=== PATIENT | female | born 1965 | race Caucasian/White ===

== ENCOUNTER → 2018-05-25 18:24 | Outpatient (REF) | payer OTHER, MEDICAID, SELFPAY ==
[2018-05-25 18:38] LABS: Add Manual Diff / Slide Review NO; Basophils Absolute Auto 100 /uL (0-100); Basophils Percent Auto 1.7 % (0-2); Eosinophils Absolute Auto 0 /uL (0-450); Eosinophils Percent Auto 0.9 % (2-4); Hematocrit 43.3 % (36-46); Hemoglobin 14.2 g/dL (12.0-16.0); Lymphocytes Absolute Auto 2000 /uL (1100-4500); Mean Corpuscular HGB Conc 32.7 % (30-36); Mean Corpuscular Hemoglobin 31.8 PG (26-34); Mean Corpuscular Volume 97.3 fL (80-100); Monocytes Absolute Auto 500 /uL (0-900); Monocytes Percent Auto 12.7 % (3-14); Neutrophils Absolute Auto 1400 /uL (1500-7000); Neutrophils Percent Auto 34.7 % (50-75); Platelet Count 169 X10^3/uL (150-400); Red Blood Cell Count 4.45 X10^6/uL (4.0-5.2); Red Cell Distribution Width 18.2 % (11.6-14.8); White Blood Cell Count 4.1 X10^3/uL (4.5-11.0)
[2018-05-25 19:11] LABS: Alanine Aminotransferase 80 IU/L (9-52); Albumin 4.4 g/dL (3.5-5.0); Albumin Globulin Ratio 1.6 (1.0-2.8); Alkaline Phosphatase 82 U/L (38-126); Aspartate Aminotransferase 53 IU/L (14-36); Bilirubin Total 0.7 mg/dL (0.2-1.3); Blood Urea Nitrogen 26 mg/dL (7-17); Calcium 9.2 mg/dL (8.4-10.2); Carbon Dioxide 27 mmol/L (22-32); Chloride 100 mmol/L (98-107); Cholesterol 233 mg/dL (140-199); Estimated Glomerular Filt Rate 58.5 mL/min (>60); Globulin 2.8 g/dL (1.7-4.1); Glucose 91 mg/dL (70-100); HEMOLYSIS < 15 (0-50); Potassium 3.8 mmol/L (3.4-5.1); Sodium 139 mmol/L (137-145); Total Protein 7.2 g/dL (6.3-8.2); Triglycerides 130 mg/dL (35-150)
[2018-05-25 19:20] LABS: HDL Cholesterol 108 mg/dL (40-60); LDL Cholesterol Calculated 99 mg/dL (<100)
[2018-05-29 08:39] LABS: Hepatitis A Antibody IgM NONREACTIVE (NONREACTIVE); Hepatitis Acute Panel Interp 0.02; Hepatitis B Core Antibody IgM NONREACTIVE (NONREACTIVE); Hepatitis B Surface Antigen NONREACTIVE (NONREACTIVE); Hepatitis C Antibody NONREACTIVE
== END ==
LOC: LAB 18:24
PROVIDERS: Visit Provider Family Medicine Geriatric Medicine
DX: I10 Essential (primary) hypertension (principal); Z13.220 Encounter for screening for lipoid disorders; Z00.00 Encounter for general adult medical examination without abnormal findings
CPT/HCPCS: 36415; 80053; 80061; 80074; 85025

== ENCOUNTER 2019-02-25 13:28 | Emergency (ER) | payer OTHER, MEDICAID, SELFPAY ==
[2019-02-25 13:44] VITALS: BP 147/113; PULSE 82; RESP 15; TEMP 36.7; O2SAT 97; BMI 30.9
--- NOTE | 2019-02-25 13:55 | DI.US.S_ITS ---
PROCEDURE: US ABDOMEN LIMITED INDICATIONS: EPIGASTRIC PAIN; ELEVATED BILIRUBIN, LFTS TECHNIQUE: Real-time focused scanning was performed of the abdomen, with image documentation. COMPARISON: None. FINDINGS: This study is limited by body habitus. The liver demonstrates normal size. The liver demonstrates generalized increased echogenicity. This decreases ultrasound sensitivity for detection of hepatic masses. No findings of gallstones or sludge are seen. The gallbladder wall is not thickened, measuring 3 mm or less. No specific pericholecystic fluid is seen. The sonographic Bosch sign is negative. There is no biliary dilatation, the common bile duct measures 4 mm. No significant pancreatic abnormality is seen on these images. IMPRESSION: The gallbladder demonstrates a normal sonographic appearance. No biliary dilatation is seen. Fatty liver infiltration. Dictated by: Fransisco Cartagena M.D. on 02/25/2019 at 13:55 Approved by: Fransisco Cartagena M.D. on 02/25/2019 at 13:57
--- NOTE | 2019-02-25 13:59 | ED_ITS ---
HPI - Nausea/Vomiting/Diarrhea <LILIBETH Moore - Last Filed: 02/25/19 15:27> General Chief complaint: Nausea/Vomiting/Diarrhea Stated complaint: check gall bladder Time Seen by Provider: 02/25/19 13:42 Source: patient Mode of arrival: Ambulatory Limitations: no limitations History of Present Illness HPI Narrative: This is a 53-year-old female, smoker, presents to ED after referred by [facility] in Tuesday for US for cholecystitis. Patient reports she has been having multiple times of nausea and vomiting since Tuesday evening at 8:00 p.m. with mild discomfort in epigastric area. She reports her symptoms were improved after she was treated with IV fluid and medication in Tuesday this morning. Patient denies fever, chills. Lab tests and EKG were done prior coming into ED. EKG was NSR rate is 70s. Troponin was Neg. NA was 132, Cl 94, K 32, Magnesium 1.6, Innized Ca of 1.02. Elevated ALT and AST of 133 and 96 with total Bili of 2.9. Normal lactate and no leukocytosis. Patient was medicated with magnesium 1 g, normal saline a L, Haloperidol 5mg IV, Benadryl 25 mg IV, oral potassium chloride 40 mEq while in [facility]. Patient had similar symptoms 4 times last year in April, May, June and July which improved after she was hydrated with IV fluid and treated in Tuesday. Last LMP 5 years ago. Related Data Previous Rx's Medication Instructions Recorded ondansetron 4 mg PO Q6-8H PRN #7 tab 02/25/19 Review of Systems <LILIBETH Moore - Last Filed: 02/25/19 15:27> Review of Systems Narrative: General: Denies fever, chills, fatigue, malaise, sweats. HEENT: Denies sinus pain, ear pain, sore throat, difficulty swallowing, dizziness. Respiratory: Denies dyspnea, cough, wheezing, hemoptysis, sputum. Cardiovascular: Denies chest pain, palpitations, orthopnea, edema. Gastrointestinal: See HPI : Denies dysuria, frequency, incontinence, hematuria, urinary retention. Musculoskeletal: Denies weakness, joint pain or bony pain. Skin: Denies rash, skin lesions, or other. Neurologic: Denies weakness, headache, numbness, change in speech, confusion, seizures, incoordination. Psychiatric: No concerning psychosocial issues. 12-point review of systems is negative except for those stated above. Patient History <LILIBETH Moore - Last Filed: 02/25/19 15:27> Social History Smoking Status: Current every day smoker alcohol intake: current substance use type: marijuana Smoking Status: Current every day smoker tobacco type: cigarettes alcohol intake frequency: 0-2 drinks per day Alcohol type: beer, wine and hard liquor Substance Use Type: marijuana Exam <LILIBETH Moore - Last Filed: 02/25/19 15:27> Narrative Exam Narrative: GEN: Alert, oriented x 3, well appearing and nourished, and in no acute distress. Head: Normal cephalic, atraumatic. No scalp or temporal tenderness, palpable mass or rash. EYES: Pupils are equal, round, and reactive to light and accommodation. Extraocular muscles are intact bilaterally. There is no subconjunctival hemorrhage, exudate and sclera non-icteric. ENT: Bilateral auditory canals and tympanic membranes clear. Hearing grossly intact. Nose without bleeding, purulent discharge or deviation. Facial sinuses nontender to palpate. Mucous membrane moist, no mucosal lesion. Throat without erythema, tonsillar hypertrophy or exudate. Uvula in midline, airway patent. Neck: Trachea in midline. No JVD, non-tender without lymphadenopathy. No masses or thyroid megaly. Supple, non-tender and no meningeal signs. CARDIAC: Normal regular rate and rhythm without murmurs, gallops, or rubs. No chest wall tenderness. No peripheral edema, cyanosis or pallor. Capillary refill is less than 2 seconds. RESPIRATORY: Lungs are clear to auscultate bilaterally. No cough, wheezes, rales, or rhonchi. No stridor, respiratory distress, increase work of br eathing, or accessary muscle used. ABD: Abdomen soft, mild tender in epigastric area without radiation and non- distended. No guarding or rebound tenderness to palpate. Bowel sounds are normal in all 4 quadrants. There is no palpable masses or organomegaly. EXT: Full painless ROM of all extremities with no loss of sensation, strength, effusion or edema. SKIN: Warm, dry, normal color for patient. No erythema, lesions or rash over visible areas. BACK: Nontender without deformity or crepitance. No flank tenderness. NEUROLOGICAL: Alert and oriented to place, time and person. Sensation and motor function intact bilaterally. No facial droops, dysphasia. PSYCHIATRIC: Good judgement and reason, without hallucinations, abnormal affect or abnormal behaviors during the examination. Patient is not suicidal. Initial Vital Signs Initial Vital Signs: Vital Signs Temperature 98.1 F 02/25/19 13:44 Pulse Rate 82 02/25/19 13:44 Respiratory Rate 15 02/25/19 13:44 Blood Pressure 147/113 H 02/25/19 13:44 Pulse Oximetry 97 02/25/19 13:44 <Olamide Goldberg DO - Last Filed: 02/25/19 17:57> Initial Vital Signs Initial Vital Signs: Vital Signs Temperature 98.1 F 02/25/19 13:44 Pulse Rate 82 02/25/19 13:44 Respiratory Rate 15 02/25/19 13:44 Blood Pressure 147/113 H 02/25/19 13:44 Pulse Oximetry 97 02/25/19 13:44 Scores <CELESTINA MooreP - Last Filed: 02/25/19 15:27> GCS [place] coma scale eye opening: Spontaneous [place] coma scale verbal response: Orientated [place]ori[place] coma scale motor response: Obey commands [place] coma scale total score: 15 Course <CELESTINA MooreP - Last Filed: 02/25/19 15:27> Orders Ordered: ED Orders 02/25/19 13:55 US abdomen limited Stat Vital Signs Vital signs: Vital Signs - 8 hr 02/25/19 13:44 02/25/19 15:15 Temperature 98.1 F Pulse Rate 82 87 Respiratory Rate 15 16 Blood Pressure 147/113 H Blood Pressure [Right Arm] 158/88 H Pulse Oximetry 97 99 <Olamide Goldberg DO - Last Filed: 02/25/19 17:57> Orders Ordered: ED Orders 02/25/19 13:55 US abdomen limited Stat Vital Signs Vital signs: Vital Signs - 8 hr 02/25/19 13:44 02/25/19 15:15 Temperature 98.1 F Pulse Rate 82 87 Respiratory Rate 15 16 Blood Pressure 147/113 H Blood Pressure [Right Arm] 158/88 H Pulse Oximetry 97 99 [facility] - Nausea/Vomiting/Diarrhea <LILIBETH Moore - Last Filed: 02/25/19 15:27> Differential Diagnosis Differential diagnosis: Likely gastroenteritis and other (Nausea and vomiting, cholecystitis, ) Medical Records Attestation: I reviewed the patient's medical records. Imaging Data US - abdomen: Radiologist's Impression: [address] [address] Ultrasound Report Signed Patient: Kathy Butts#: [id number] : 1965Acct:[id number] Age/Sex: 53 / FDate of Service: 02/25/19 Loc: ED Accession Number: [id number] Procedure: US abdomen limited Ordering Provider: Jesús Sterling PROCEDURE: US ABDOMEN LIMITED INDICATIONS: EPIGASTRIC PAIN; ELEVATED BILIRUBIN, LFTS TECHNIQUE: Real-time focused scanning was performed of the abdomen, with image documentation. COMPARISON: None. FINDINGS: This study is limited by body habitus. The liver demonstrates normal size. The liver demonstrates generalized increased echogenicity. This decreases ultrasound sensitivity for detection of hepatic masses. No findings of gallstones or sludge are seen. The gallbladder wall is not thickened, measuring 3 mm or less. No specific pericholecystic fluid is seen. The sonographic Bosch sign is negative. There is no biliary dilatation, the common bile duct measures 4 mm. No significant pancreatic abnormality is seen on these images. IMPRESSION: The gallbladder demonstrates a normal sonographic appearance. No biliary dilatation is seen. Fatty liver infiltration. Dictated by: Fransisco Cartagena M.D. on 02/25/2019 at 13:55 Approved by: Fransisco Cartagena M.D. on 02/25/2019 at 13:57 [facility] Narrative Medical decision making narrative: This is a 53-year-old female who presents to ED after she was referred to [facility] for ultrasound test after she was evaluated at [facility] in Tuesday with multiple episodes of nausea and vomiting since Tuesday evening. Patient had blood tests done and was treated with IV fluid, electrolytes and medications for nausea. Patient presents to ED with resolved nausea and vomiting and physical exam was benign with very mild tenderness to epigastric area with deep palpation without radiation. Ultrasound test was obtained indicating fatty liver infiltration without gallstones, sludge or biliary dilatation. Findings were shared with the patient and patient advised to follow up with PCP for repeat lab test in a couple of weeks. Patient advised to avoid alcohol intake and healthy diet with low cholesterol and fatty food. Return precautions were discussed with the patient and patient verbalized understanding and agrees with the treatment plan. Discharge Plan Departure Patient Disposition: Home Clinical Impression: Fatty liver, Elevated liver function tests Discharge Date/Time: 02/25/19 15:16 Activity Restrictions/Additional Instructions: You have been diagnosed with [elevated liver enzyme test with bilirubin. You were treated for nausea and vomiting in [facility] in Tuesday. Today ultrasound test does not show gallstones, sludge or biliary dilatation. However, it appears to be you have fatty liver infiltration.]. What to do: *Take your medications as directed. I'll send her home with Zofran and please take this as needed for nausea or vomiting. *Follow up with your primary care provider in 2-3 days, call for an appointment. Let them know you were seen in the ED and that we asked you to be seen in follow up. You may need repeat blood test for liver function tests and chemistries in a few weeks. *Return to ED if you have any new, worsening, or concerning symptoms, such as [abdominal pain, fever, increasing nausea vomiting, unable to tolerate fluids, chest pain, breathing difficulty or any acute concerns]. Prescriptions: New ondansetron 4 mg tablet,disintegrating 4 mg PO Q6-8H PRN (Reason: nausea and vomiting) Qty: 7 RF: 0 Referrals: Preeti Vasquez MD [Primary Care Provider] -
[2019-02-25 15:15] VITALS: BP 158/88; PULSE 87; RESP 16; O2SAT 99
== END 2019-02-25 15:16 | disposition home or self-care (01) ==
PROVIDERS: Emergency Provider Nurse Practitioner Family; PCP Family Medicine Geriatric Medicine
DX: K76.0 Fatty (change of) liver, not elsewhere classified (principal); R94.5 Abnormal results of liver function studies
CPT/HCPCS: 76705; 99283

== ENCOUNTER → 2019-09-06 11:19 | Outpatient (CLI) | payer OTHER, MEDICAID, SELFPAY ==
--- NOTE | 2019-09-06 | DI.MRI.S_ITS ---
PROCEDURE: MR SHOULDER LT WO CON INDICATIONS: Bursitis of left shoulder TECHNIQUE: Noncontrast oblique coronal T2 fast spin echo with fat saturation, oblique sagittal T1 spin echo and T2 fast spin echo with fat saturation, axial T1 spin echo and T2 fast spin echo with fat saturation through the shoulder. COMPARISON: None. FINDINGS: Image quality: Excellent. Rotator cuff: Tendinosis and low-grade articular and bursal surface partial-thickness tear involving distal supraspinatus at its insertion on the humeral head is seen extending to the musculotendinous junction. Distal infraspinatus tendinosis is seen. Distal subscapularis tendon is intact. Sagittal images demonstrate moderate supraspinatus muscle atrophy. Bones and bursae: No bone marrow contusions or fractures. Moderate acromioclavicular joint osteoarthritic changes are seen with downward osteophyte formation depressing the musculotendinous junction of supraspinatus. No pathologic subacromial-subdeltoid or subcoracoid bursal fluid is present. Capsule and soft tissues: In the absence of intra-articular contrast, there is suggestion of subtle superior anterior labral tear at 12 to 1:00 position. The glenohumeral ligaments appear intact. The long head of the biceps tendon demonstrates normal location and morphology. The rotator interval appears normal, without fibrosis. The coracohumeral ligament is normal in thickness. IMPRESSION: 1. Tendinosis and low-grade articular and bursal surface partial thickness tear involving distal supraspinatus. Distal infraspinatus tendinosis. Moderate supraspinatus muscle atrophy. 2. Moderate acromioclavicular joint osteoarthritis. 3. Suggestion of subtle superior anterior labral tear at 12 to 1:00 position. Dictated by: Yaya Grayson M.D. on 09/06/2019 at 12:15 Approved by: Yaya Grayson M.D. on 09/06/2019 at 12:30
== END ==
PROVIDERS: PCP Family Medicine; Referring Provider Family Medicine; Visit Provider Physician Assistant Medical
DX: M75.52 Bursitis of left shoulder (principal); M19.012 Primary osteoarthritis, left shoulder; M75.112 Incomplete rotator cuff tear or rupture of left shoulder, not specified as traumatic; R53.1 Weakness
CPT/HCPCS: 73221